=== PATIENT | male | born 1985 | race American Indian/Alaskan Native ===

== ENCOUNTER 2017-06-27 18:54 | Emergency (ER) | payer OTHER ==
[2017-06-27 19:18] VITALS: BP 135/78; PULSE 85; RESP 19; TEMP 98.6; O2SAT 98
--- NOTE | 2017-06-27 19:47 | ED PDOC ---
Arrival/HPI - General Chief Complaint: Medical Clearance Time Seen by Provider: 06/27/17 19:21 Historian: Patient - History of Present Illness Narrative History of Present Illness (Text): 06/27/17 19:49 A 32 year old male presents to the emergency department complaining of right sided facial swelling today. Patient unsure of cause. Patient denies any fevers or any other complaints at this time. PMD: Dr. Álvaro Villa Symptom Onset: Sudden Symptom Course: Unchanged Activities at Onset: Rest Context: Home Past Medical History - Provider Review Nursing Documentation Reviewed: Yes - Infectious Disease Hx of Infectious Diseases: None - Psychiatric Hx Psychophysiologic Disorder: No Hx Substance Use: No - Anesthesia Hx Anesthesia: No Hx Anesthesia Reactions: No Hx Malignant Hyperthermia: No Family/Social History - Physician Review Nursing Documentation Reviewed: Yes Family/Social History: No Known Family HX Smoking Status: Never Smoked Hx Alcohol Use: Yes Frequency of alcohol use: Socially Hx Substance Use: No Allergies/Home Meds Allergies/Adverse Reactions: Allergies No Known Allergies Allergy (Verified 06/27/17 19:18) Review of Systems - Physician Review All systems were reviewed & negative as marked: Yes - Review of Systems Constitutional: Other (right sided facial swelling). absent: Fevers Skin: absent: Rash Neurological: absent: Headache Physical Exam Vital Signs Reviewed: Yes Vital Signs Temp Pulse Resp BP Pulse Ox 06/27/17 19:14 98.6 F 85 19 135/78 98 Temperature: Afebrile Blood Pressure: Normal Pulse: Regular Respiratory Rate: Normal Appearance: Positive for: Well-Appearing, Non-Toxic, Comfortable Pain Distress: None Mental Status: Positive for: Alert and Oriented X 3 - Systems Exam Head: Present: Atraumatic, Normocephalic, Other (mild right sided facial swelling) Pupils: Present: PERRL Extroacular Muscles: Present: EOMI Conjunctiva: Present: Normal Mouth: Present: Moist Mucous Membranes, Other (multiple caries to right) Neck: Present: Normal Range of Motion Respiratory/Chest: Present: Clear to Auscultation, Good Air Exchange. No: Respiratory Distress, Accessory Muscle Use Cardiovascular: Present: Regular Rate and Rhythm, Normal S1, S2. No: Murmurs Abdomen: Present: Normal Bowel Sounds. No: Tenderness, Distention, Peritoneal Signs Back: Present: Normal Inspection Upper Extremity: Present: Normal Inspection. No: Cyanosis, Edema Lower Extremity: Present: Normal Inspection. No: Edema Neurological: Present: GCS=15, CN II-XII Intact, Speech Normal Skin: Present: Warm, Dry, Normal Color. No: Rashes Psychiatric: Present: Alert, Oriented x 3, Normal Insight, Normal Concentration Medical Decision Making ED Course and Treatment: 06/27/17 19:44 Impression: A 32 year old male with right facial swelling. r/o abscess, sialolithiasis, dental infection - labs ct pending Plan: -- labs -- Reassess and disposition Progress Notes:pt refuses to wait for ct. requesting to be immediately dc. advise outpt follow up and return precautions 06/27/17 21:36 Leaving Against Medical Advice (AMA): The patient is choosing to leave against medical advice. I have personally explained to the patient that choosing to do so may result in permanent bodily harm or . I have discussed at great length that without further evaluation and monitoring there may be unforeseen circumstances and/or deterioration causing permanent bodily harm or as a result of their choice. The patient is alert, oriented, and shows the mental capacity to make clear decisions regarding the patients health care at this time. The patient continues to wish to leave against medical advice. The patient has been advised that they should return to the emergency room immediately if they change their mind at any time, or if their condition begins to change or worsen in any way. 06/27/17 22:30 - Lab Interpretations Lab Results: 06/27/17 20:20 06/27/17 20:20 Lab Results 06/27/17 20:20: Sodium 141, Potassium 3.9, Chloride 103, Carbon Dioxide 27, Anion Gap 15, BUN 12, Creatinine 1.1, Est GFR ( Amer) > 60, Est GFR (Non- Af Amer) > 60, Random Glucose 82, Calcium 9.5, Total Bilirubin 0.6, AST 27, ALT 33, Alkaline Phosphatase 69, Total Protein 7.4, Albumin 4.4, Globulin 3.1, Albumin/Globulin Ratio 1.4 06/27/17 20:20: WBC 12.3 H, RBC 4.86, Hgb 14.6, Hct 43.5, MCV 89.5, MCH 30.0, MCHC 33.6, RDW 12.3, Plt Count 233, MPV 9.6, Gran % 63.2, Lymph % (Auto) 23.7, [place] % (Auto) 8.2 H, Eos % (Auto) 4.7, Baso % (Auto) 0.2, Gran # 7.76 H, Lymph # 2.9, [place] # 1.0 H, Eos # 0.6, Baso # 0.03 I have reviewed the lab results: Yes - Medication Orders Current Medication Orders: Discontinued Medications Amoxicillin (Amoxil 500 Mg Cap) 500 mg PO STAT STA PRN Reason: Protocol Stop: 06/27/17 21:36 - Scribe Statement The provider has reviewed the documentation as recorded by the Krystle Mijares Provider Scribe Attestation: All medical record entries made by the Scribe were at my direction and personally dictated by me. I have reviewed the chart and agree that the record accurately reflects my personal performance of the history, physical exam, medical decision making, and the department course for this patient. I have also personally directed, reviewed, and agree with the discharge instructions and disposition. Disposition/Present on Arrival - Present on Arrival Any Indicators Present on Arrival: No History of DVT/PE: No History of Uncontrolled Diabetes: No Urinary Catheter: No History of Decub. Ulcer: No History Surgical Site Infection Following: None - Disposition Have Diagnosis and Disposition been Completed?: Yes Diagnosis: Facial swelling Disposition: AGAINST MEDICAL ADVICE Disposition Time: 10:00 Condition: UNKNOWN Discharge Instructions (ExitCare): Dental Caries (ED), Leukocytosis (ED) Additional Instructions: you are leaving with out imaging. you are able to return at any time with any concenr. please see specialsit. Prescriptions: Amoxicillin 500 mg PO TID #21 tab Referrals: [facility] [Outside] - Follow up with primary [email or web address] [Outside] - Follow up with primary PCP,NO [Primary Care Provider] - Follow up with primary Forms: [employer] (Portuguese)
[2017-06-27 21:03] LABS: BASO # 0.03 K/mm3 (0.0-2.0); BASO % 0.2 % (0.0-3.0); EOS # 0.6 (0.0-0.7); EOS % 4.7 % (1.5-5.0); GRAN # 7.76 (1.4-6.5); GRAN % 63.2 % (50.0-68.0); HEMATOCRIT 43.5 % (42.0-52.0); LYMPH # 2.9 (1.2-3.4); LYMPH % 23.7 % (22.0-35.0); MEAN CELL VOLUME 89.5 fl (80.0-105.0); MEAN CORPUSCULAR HGB CONC 33.6 g/dl (31.0-37.0); MEAN PLATELET VOLUME 9.6 fl (7.0-11.0); MONO % 8.2 % (1.0-6.0); RED CELL DISTRIBUTION WIDTH 12.3 % (11.5-14.5); WHITE BLOOD COUNT 12.3 10^3/ul (4.5-11.0)
[2017-06-27 21:08] LABS: ALB/GLOB RATIO 1.4 (1.1-1.8); ALKALINE PHOSPHATASE 69 U/L (38-133); ALT/SGPT 33 U/L (7-56); AST/SGOT 27 U/L (15-59); BILIRUBIN,TOTAL 0.6 mg/dL (0.2-1.3); BLOOD UREA NITROGEN 12 mg/dL (7-21); CALCIUM 9.5 mg/dL (8.4-10.5); CARBON DIOXIDE 27 mmol/L (21-33); CHLORIDE 103 mmol/L (98-107); GFR AFRICAN-AMERICAN > 60; GLUCOSE,RANDOM 82 mg/dL (70-110); POTASSIUM 3.9 mmol/L (3.6-5.0); SODIUM 141 mmol/L (132-148); TOTAL PROTEIN 7.4 g/dL (5.8-8.3)
== END 2017-06-27 21:39 | disposition left against medical advice (07) ==
LOC: ED 18:54
DX: R22.0 Localized swelling, mass and lump, head (principal)